=== PATIENT | male | born 1960 | race Caucasian/White ===

== ENCOUNTER 2021-01-10 06:39 | Outpatient (REF) | payer MEDICARE, SELFPAY | END 2021-01-10 06:40 | disposition home or self-care (01) | LOC: HO.LAB 06:39 | PROVIDERS: PCP Internal Medicine; Visit Provider Internal Medicine | DX: Z20.822 Contact with and (suspected) exposure to COVID-19 (principal) | CPT/HCPCS: U0003; U0005 ==

== ENCOUNTER 2021-03-25 09:42 | Outpatient (REF) | payer MEDICARE, SELFPAY | END 2021-03-25 09:43 | disposition home or self-care (01) | LOC: HO.LAB 09:42 | PROVIDERS: PCP Internal Medicine; Visit Provider Internal Medicine | DX: Z20.822 Contact with and (suspected) exposure to COVID-19 (principal) | CPT/HCPCS: C9803; U0003; U0005 ==

== ENCOUNTER 2023-06-20 08:58 | Outpatient (REF) | payer MEDICARE, SELFPAY ==
[2023-06-20 11:58] LABS: Anion Gap 15 (12-20); Blood Urea Nitrogen 13 mg/dL (9-16); Calcium 9.7 mg/dL (8.4-10.2); Carbon Dioxide 25 mmol/L (22-29); Chloride 105 mmol/L (96-108); Estimated Glomerular Filt Rate > 60; Glucose Random 109 mg/dL (60-115); Potassium 4.2 mmol/L (3.3-5.1); Sodium 141 mmol/L (135-145)
== END 2023-06-20 08:59 | disposition home or self-care (01) ==
LOC: HO.HHCL 08:58
PROVIDERS: Visit Provider Internal Medicine
DX: I10 Essential (primary) hypertension (principal)
CPT/HCPCS: 36415; 80048

== ENCOUNTER 2024-05-09 08:48 | Outpatient (REF) | payer MEDICARE, SELFPAY ==
[2024-05-09 11:40] LABS: Alanine Aminotransferase 15 U/L (0-40); Albumin Level 4.1 g/dL (3.5-5.0); Alkaline Phosphatase 55 U/L (39-117); Anion Gap 13 (12-20); Aspartate Amino Transferase 23 U/L (5-37); Bilirubin Total 0.5 mg/dL (0.0-1.0); Blood Urea Nitrogen 10 mg/dL (9-16); Calcium 9.4 mg/dL (8.4-10.2); Carbon Dioxide 26 mmol/L (22-29); Chloride 106 mmol/L (96-108); Cholesterol 167 mg/dL (<200); Estimated Glomerular Filt Rate > 60; Glucose Fasting 119 mg/dL (60-99); HDL Cholesterol 47 mg/dL (>40); LDL Cholesterol Calculated 100 mg/dL (<100); Potassium 4.2 mmol/L (3.3-5.1); Sodium 141 mmol/L (135-145); Total Protein 6.7 g/dL (6.5-8.0); Triglycerides 101 mg/dL (<150)
[2024-05-09 11:49] LABS: ~HepC Num1 0.08 S/CO (0.00-0.79); ~Hepatitis C Antibody Nonreactive (Nonreactive)
[2024-05-09 11:50] LABS: Prostate Specific Antigen 1.35 ng/mL (<0.05-4.0)
[2024-05-09 12:39] LABS: Creatinine Urine 184.31 mg/dL; Microalbum/Creatinine Ratio Ur 5.9 ug/mg cr (<30)
== END 2024-05-09 08:49 | disposition home or self-care (01) ==
LOC: HO.HHCL 08:48
PROVIDERS: Visit Provider Internal Medicine
DX: Z13.89 Encounter for screening for other disorder (principal)
CPT/HCPCS: 36415; 80053; 80061; 82043; 82570; 84153; 84443; 86803

== ENCOUNTER 2024-09-18 10:55 | Outpatient (REF) | payer MEDICARE, SELFPAY ==
[2024-09-18 11:57] LABS: MANUAL DIFF FLAG NO
[2024-09-18 12:03] LABS: Basophils Percent Auto 0.6 % (0-2); Eosinophils Percent Auto 0.4 % (0-4); Hematocrit 38.5 % (42.0-52.0); Hemoglobin 12.8 g/dl (14.0-18.0); Imm Gran Abs Auto 0.03 X10*3/uL (0.00-0.03); Imm Gran Pct Auto 0.4 % (0.0-0.4); Lymphocytes Absolute Auto 1.3 X10*3/uL (1.2-4.9); Lymphocytes Percent Auto 18.3 % (20-40); Mean Corpuscular HGB Conc 33.2 g/dl (31.0-36.0); Mean Corpuscular Hemoglobin 30.3 pg (27.0-33.0); Mean Corpuscular Volume 91.2 fL (80.0-98.0); Mean Platelet Volume 9.9 fL (9.4-12.4); Monocytes Absolute Auto 0.5 X10*3/uL (0.1-1.2); Monocytes Percent Auto 6.7 % (2-11); Neutrophils Absolute Auto 5.3 x10*3/uL (2.0-8.3); Neutrophils Percent Auto 73.6 % (45-73); Platelet Count 216 X10*3/uL (160-400); Red Blood Count 4.22 X10*6/uL (4.60-5.80); Red Cell Distribution Width 13.3 % (11.0-16.0); White Blood Count 7.1 X10*3/uL (4.8-10.8)
[2024-09-18 12:27] LABS: Alanine Aminotransferase 17 U/L (0-40); Albumin Level 4.3 g/dL (3.5-5.0); Alkaline Phosphatase 52 U/L (39-117); Anion Gap 17 (12-20); Aspartate Amino Transferase 22 U/L (5-37); Bilirubin Total 0.4 mg/dL (0.0-1.0); Blood Urea Nitrogen 12 mg/dL (9-16); Calcium 9.4 mg/dL (8.4-10.2); Carbon Dioxide 24 mmol/L (22-29); Chloride 102 mmol/L (96-108); Cholesterol 187 mg/dL (<200); Estimated Glomerular Filt Rate > 60; Glucose Random 127 mg/dL (60-115); HDL Cholesterol 53 mg/dL (>40); LDL Cholesterol Calculated 122 mg/dL (<100); Potassium 4.4 mmol/L (3.3-5.1); Sodium 139 mmol/L (135-145); Total Protein 7.2 g/dL (6.5-8.0); Triglycerides 60 mg/dL (<150)
[2024-09-18 12:41] LABS: Creatinine Urine 205.91 mg/dL; Microalbum/Creatinine Ratio Ur 4.8 ug/mg cr (<30); Prostate Specific Antigen Scr 1.62 ng/mL (<0.05-4.0)
[2024-09-18 12:47] LABS: TSH reflex Free T4 1.34 uIU/mL (0.32-4.0)
[2024-09-18 13:26] LABS: Erythrocyte Sedimentation Rate 7 MM/HR (0-15)
[2024-09-19 08:46] LABS: ~HepC Num1 0.09 S/CO (0.00-0.79); ~Hepatitis C Antibody Nonreactive (Nonreactive)
== END 2024-09-18 10:56 | disposition home or self-care (01) ==
LOC: HO.HHCL 10:55
PROVIDERS: Visit Provider Internal Medicine
DX: Z00.00 Encounter for general adult medical examination without abnormal findings (principal); I10 Essential (primary) hypertension; E11.9 Type 2 diabetes mellitus without complications; R63.4 Abnormal weight loss; Z12.5 Encounter for screening for malignant neoplasm of prostate
CPT/HCPCS: 36415; 80053; 80061; 82043; 82570; 84153; 84443; 85025; 85652; 86803

== ENCOUNTER 2024-09-18 11:35 | Outpatient (REF) | payer MEDICARE, SELFPAY ==
--- NOTE | ~2024-09-18 | XR_ITS ---
EXAMINATION: XR CHEST CLINICAL INFORMATION: WEIGHT LOSS COMPARISON: None available. TECHNIQUE: 2 views of the chest were obtained. FINDINGS: No consolidation, pleural effusion or pneumothorax. Cardiomediastinal silhouette size is normal. Calcified plaque aortic arch. Osseous structures are intact. XR/XR chest 2V IMPRESSION: No acute airspace disease. Electronically signed by: Percy Lennon MD 09/18/2024 12:43 PM EST
--- OUTSIDE RECORDS SUMMARY | 2024-09-18 14:16 | XMS_ITS | Encounter Summary ---
Author Organization [employer] Address [address] [place] [address] [address] [place] [address] Care Team Providers Care Youth Liaison Officer Name Role Phone Gregg Brown MD Primary Care Provide r Reason for Visit * Reason Onset Date Comments Chart Prep 09/04/2024 Encounter Details Date Type Department Care Team ([facility] st Contact Info) Description 09/04/2024 Telephone [facility] [address] [place] [address] Gregg Brown MD [address] [place] [address] Chart Prep Social History Tobacco Use Types Packs/Day Years Used Date Smoking Tobacco: Former Cigarettes Passive Smoke Exposure: Past Smokeless Tobacco: Never Alcohol Use Standard Drinks/Week Comments Yes 0 (1 standard drink = 0.6 oz pur e alcohol) rare Alcohol Answer Date Recorded Frequency of Alcohol Consumption Not on file 05/20/2024 Average Number of Drinks Not on file 024 Frequency of Binge Drinking Not on file 11/2023 Score 0 05/20/2024 Depression Answer Date Recorded Patient Health Questionnaire-9 Score 0 01/15/2024 Patient Health Questionnaire-9 Score 0 01/15/2024 Last PHQ-9: Questionnaire Data Not on file 0 01/15/2024 Housing Stability Answer Date Recorded What is your housing situation today? I have dave townsend 01/15/[address] you li ve. Do you have problems with any of the following? None of the above 01/15/2024 Food Insecurity Answer Date Recorded Within the past 12 months, y ou worried that your food would run out before you got money to buy more: Never True 01/15/2024 Within the past 12 months,th e food you bought just didn't last and you didn't have enough money to get more: Never True 08/2023 Transportation Answer Date Recorded In the past 12 months, has l ack of transportation kept you from medical appts, meetings, work or from getting things needed for daily living? No 01/15/2024 Utilities Answer Date Recorded In the past 12 months, has t he electric, gas, oil or water company threatened to shut off services in your home? No 01/15/2024 Depression Answer Date Recorded Patient Health Questionnaire-2 Score 0 01/15/2024 Internet Access Answer Date Recorded Internet Access Q1 Yes 03/17/2024 Internet Access Q2 Not on file 03/17/2024 Sex and Gender Information Value Date Recorded Sex Assigned at Male 05/15/2022 10:18 AM EDT Legal Sex Male 10:18 AM EDT Gender Identity Male 05/15/2022 10:18 AM EDT Sexual Orientation Straight 05/15/2022 10 :18 AM EDT documented as of this encounter Miscellaneous Notes * Telephone Encounter - Maris Dye [place] - 09/04/2024 10:30 AM EST Chart Prep Labs: not applicable Images: not applicable Vaccines due: Tdap Due, PCV20 Due, and Shingles in pharmacy Due Referrals: Optometry Pending appointment on n/a Screenings: Colonoscopy and Foot Exam Overdue care gaps: A1C, Glucose, and Oral Health Chart prep for upcoming appt with Dr.Esparza greene. LB documented in this encounter Plan of Treatment Not on file documented as of this encounter Visit Diagnoses Not on filedocumented in this encounter Additional Health Concerns Assessment Noted Time PHQ-9 Depression Total Score: 0 01/15/20 24 10:30 AM EDT documented as of this encounter Care Teams Youth Liaison Officer Relationship Specialty Start Date End Date Gregg Brown MD [address] [place] [phone] PCP - General Internal Medicine 02/17/14 documented as of this encounter
--- OUTSIDE RECORDS SUMMARY | 2024-09-18 14:16 | XMS_ITS | Encounter Summary ---
Author Organization [facility] Address [address] [place] [address] [address] [place] [address] Care Team Providers Care Verification Clerk Name Role Phone Gregg Brown MD Primary Care Provide r Reason for Referral * Imaging (Routine) - Authorized Specialty Diagnoses / Procedures Referred By Contac t Referred To Contact Radiology Diagnoses Weight loss Procedures CT Chest w/o Contrast Gregg Brown MD [address] [place] [address] Phone: tel: fax: [address] Phone: tel: fax: Referral ID Status Reason Start Date Expiration Date V isits Requested Visits Authorized [id number] Authorized 09/18/2024 09/18/2025 1 1 * Imaging (Routine) - Authorized Specialty Diagnoses / Procedures Referred By Contac t Referred To Contact Radiology Diagnoses Weight loss Procedures CT Abdomen Pelvis w/ Contrast Gregg Brown MD [address] [place] [address] Phone: tel: fax: Referral ID Status Reason Start Date Expiration Date V isits Requested Visits Authorized [id number] Authorized 09/18/2024 09/18/2025 1 1 Reason for Visit * Reason Comments Diabetes Encounter Details Date Type Department Care Team (Late st Contact Info) Description 09/18/2024 10:15 AM EST Office Visit [facility] [address] [place] [address] Gregg Brown MD [address] [place] [address] Essential hypertension (Primary Dx); Type 2 diabetes mellitus without complication, without long-term current use of insulin (CMS/HCC); Weight loss; Preventative health care Social History Tobacco Use Types Packs/Day Years Used Date Smoking Tobacco: Former Cigarettes Q uit: 09/18/2001 Passive Smoke Exposure: Past Smokeless Tobacco: Never Tobacco Cessation:Counseling Given: Not Answered Alcohol Use Standard Drinks/Week Comments Yes 0 [...] AM EDT documented as of this encounter Last Filed Vital Signs Vital Sign Reading Time Taken Comments Blood Pressure 138/76 09/18/2024 10:28 AM EST Pulse 89 09/18/2024 10:28 AM EST Temperature 36.3 ??C (97.3 ??F) 09/18/2024 10:[address] Respiratory Rate 20 09/18/2024 10:07 AM EST Oxygen Saturation 95% 09/18/2024 10:07 AM EST Inhaled Oxygen Concentration - - Weight 71.4 kg (157 lb 6.4 oz) 09/18/2024 10:07 AM EST Height 170.2 cm (5' 7 ) 09/18/2024 10:07 AM EST Body Mass Index 24.65 09/18/2024 10:07 AM EST documented in this encounter Progress Notes * Gregg Duff MD - 09/18/2024 10:15 AM EST SUBJECTIVE Thaddeus Ernst is a 64 y.o. male who presents for Diabetes. Diabetes He presents for his follow-up diabetic visit. He has type 2 diabetes mellitus. Pertinent negatives for hypoglycemia include no headaches. Pertinent negatives for diabetes include no chest pain. Review of Systems Constitutional: Negative for fever. HENT: Negative for sore throat. Respiratory: Negative for cough and shortness of breath. Cardiovascular: Negative for chest pain. Gastrointestinal: Negative for abdominal pain. Neurological: Negative for headaches. Allergies Allergen Reactions Simvastatin Other reaction(s): Myalgias OBJECTIVE Vitals: 09/18/24 1007 09/18/24 1028 BP: (!) 150/81 138/76 BP Location: Left arm Left arm Patient Position: Sitting Sitting BP Cuff Size: Adult Pulse: (!) 112 89 Resp: 20 Temp: 97.3 ??F (36.3 ??C) TempSrc: Temporal SpO2: 95% Weight: 157 lb 6.4 oz (71.4 kg) Height: 5' 7 (1.702 m) Physical Exam Vitals reviewed. Constitutional: Appearance: Normal appearance. HENT: Head: Normocephalic and atraumatic. Right Ear: External ear normal. Left Ear: External ear normal. Nose: Nose normal. Mouth/Throat: Mouth: Mucous membranes are moist. Eyes: Conjunctiva/sclera: Conjunctivae normal. Cardiovascular: Rate and Rhythm: Normal rate and regular rhythm. Pulmonary: Effort: Pulmonary effort is normal. Breath sounds: Normal breath sounds. Skin: General: Skin is warm. Neurological: Mental Status: He is alert. Mental status is at baseline. Assessment/Plan Problem List Items Addressed This Visit Type 2 diabetes mellitus (CMS/HCC) Pt is here for a f/u DM controlled He is on a regimen of: Metformin XR 500 mg 2 tab po in am and 2 tabs po q pm. OFF Glipizide given that pt was concerned about hypoglycemia. Hgb A1c 09/18/2024 : 5.2 Foot check risk of zero Eye Exam 10/19/[address] for eye exam. Will refer to our Eye care Program. Pt reports compliance with Asa 81 mg po daily. Microalbumin on 05/09/2024: 184.35 Plan: continue current regimen f/u 4 months. Relevant Orders POCT Glucose (Completed) POCT HGB A1C (Completed) Essential hypertension - Primary Patient here for a f/u Pt's BP currently controlled. He is on a regimen of: Lisinopril 40 mg po daily and Clonidine 0.1 mg 2 tabs po BID Most recent electrolytes, Bun and Creatinine done on: Lab Results Component Value Date NA 141 05/09/2024 NA 141 06/20/2023 K 4.2 05/09/2024 K 4.2 06/20/2023 CL 106 05/09/2024 CL 105 06/20/2023 BUN 10 05/09/2024 BUN 13 06/20/2023 CREATININE 0.84 05/09/2024 CREATININE 0.86 06/20/2023 were within normal limits. patient advised to adhere to a low sodium diet, encouraged about medication compliance, counseled about weight loss. Plan: continue current regimen f/u in 4 months with me Relevant Orders Comprehensive Metabolic Panel TSH with Reflex to Free T4 CBC auto differential Weight loss Pt with > 50 lb weight loss over the expand of 2 years, pt tells me he chooses to eat less. He has no pain, he has no complaints whatsoever feels perfectly fine Plan: Will iniate a diagnostic work up to rule out etiologies, such as hyperthyroidism, Ocult malignancy Plan: Obtain TSH, CT abdomen and pelvis rule out pancreatic malignancy. Chest x- ray, ESR. Pt refuses any type of Colorectal cancer screen Follow up with me after testing Relevant Orders XR Chest [address] Abdomen Pelvis w/ Contrast CT Chest w/o Contrast Sed Rate by [facility] care PSA 05/09/2024 was normal 1.35 [place]: [place] [facility] [place] given multiple tubular adenomas. HE TELLS ME THAT HE DECLINES ANY COLORECTAL CANCER SCREEN. DECLINES COLOGUARD . VERBALIZES UNDERSTANDING OF RISKS OF MISSING A DEADLY COLON CANCER documented in this encounter Miscellaneous Notes * Assessment & Plan Note - Gregg Duff MD - 09/18/2024 10:36 AM EST Associated Problem(s): Preventative health care PSA 05/09/2024 was normal 1.35 Colonoscopy: 09/27/2016 [place] [facility] [place] f/[place] given multiple tubular adenomas. HE TELLS ME THAT HE DECLINES ANY COLORECTAL CANCER SCREEN. DECLINES COLOGUARD . VERBALIZES UNDERSTANDING OF RISKS OF MISSING A DEADLY COLON CANCER * Assessment & Plan Note - Gregg Duff MD - 09/18/2024 10:30 AM EST Associated Problem(s): Weight loss Pt with > 50 lb weight loss over the expand of 2 years, pt tells me he chooses to eat less. He has no pain, he has no complaints whatsoever feels perfectly fine Plan: Will iniate a diagnostic work up to rule out etiologies, such as hyperthyroidism, Ocult malignancy Plan: Obtain TSH, CT abdomen and pelvis rule out pancreatic malignancy. Chest x- ray, ESR. Pt refuses any type of Colorectal cancer screen Follow up with me after testing * Assessment & Plan Note - Gregg Duff MD - 09/18/2024 10:23 AM EST Associated Problem(s): Essential hypertension Patient here for a f/u Pt's BP currently controlled. He is on a regimen of: Lisinopril 40 mg po daily and Clonidine 0.1 mg 2 tabs po BID Most recent electrolytes, Bun and Creatinine done on: Lab Results Component Value Date NA 141 05/09/2024 NA 141 06/20/2023 K 4.2 05/09/2024 K 4.2 06/20/2023 CL 106 05/09/2024 CL 105 06/20/2023 BUN 10 05/09/2024 BUN 13 06/20/2023 CREATININE 0.84 05/09/2024 CREATININE 0.86 06/20/2023 were within normal limits. patient advised to adhere to a low sodium diet, encouraged about medication compliance, counseled about weight loss. Plan: continue current regimen f/u in 4 months with me * Assessment & Plan Note - Gregg Duff MD - 09/18/2024 10:23 AM EST Associated Problem(s): Type 2 diabetes mellitus (CMS/HCC) Pt is here for a f/u DM controlled He is on a regimen of: Metformin XR 500 mg 2 tab po in am and 2 tabs po q pm. OFF Glipizide given that pt was concerned about hypoglycemia. Hgb A1c 09/18/2024 : 5.2 Foot check risk of zero Eye Exam 10/19/[address] for eye exam. Will refer to our Eye care Program. Pt reports compliance with Asa 81 mg po daily. Microalbumin on 05/09/2024: 184.35 Plan: continue current regimen f/u 4 months. documented in this encounter Plan of Treatment Scheduled Orders Name Type Priority Associated Diagnoses Orde r Schedule XR Chest 2 Views Imaging Routine Weight loss Ordered: 09/18/2024 CT Abdomen Pelvis w/ Contrast Imaging Routine Weight loss Expected: 09/18/2024, Expires: 09/18/2025 CT Chest w/o Contrast Imaging Routine Weight loss Ordered: 09/18/2024 Comprehensive Metabolic Panel Lab Routine Essential hypertension Ordered: 09/18/2024 documented as of this encounter Procedures Procedure Name Priority Date/Time Associated Diagnosis Comments TSH W/REFLEX TO FT4 Routine 09/18/2024 1 1:03 AM EST Essential hypertension CBC WITH AUTO DIFFERENTIAL Routine 09/18/2024 11:03 AM EST Essential hypertension SED RATE BY MODIFIED WESTERGREN Routine 09/18/2024 11:03 AM EST Weight loss POCT GLYCATED HEMOGLOBIN, TOTAL Routine 09/18/2024 10:19 AM EST Type 2 diabetes mellitus without complication, without long-term current use of insulin ([facility]) POCT GLUCOSE Routine 09/18/2024 10:17 AM EST Type 2 diabetes mellitus without complication, without long-term current use of insulin ([facility]) documented in this encounter Results * Sed Rate by Modified Westergren (09/18/2024 11:03 AM EST) Erythrocyte Sedimentation Rate 7 0 - 15 MM/HR [facility] Comment:Patients with polycy themia and many hemoglobin abnormalitiesmay have depressed sed rates whereas patients with anemiamay have elevated sed rates. Blood Venous blood specimen / Unknown 09/18/2024 11:03 AM EST 09/18/2024 11:51 AM EST us Gregg Duff MD LAB BLOOD ORDERABLES Final Result [facility] [address] [place] [phone] * (ABNORMAL) CBC auto differential (09/18/2024 11:03 AM EST) White Blood Count 7.1 4.8 - 10.8 X10*3/uL [facility] Red Blood Count 4.22(L) 4.60 - 5.80 X10*6/uL [facility] Hemoglobin 12.8(L) 14.0 - 18.0 g/dl [facility] Hematocrit 38.5(L) 42.0 - 52.0 % [facility] Mean Corpuscular Volume 91.2 80.0 - 98.0 fL [facility] Mean Corpuscular Hemoglobin 30.3 27.0 - 33.0 pg [facility] Mean Corpuscular HGB Conc 33.2 31.0 - 36.0 g/dl [facility] Red Cell Distribution Width 13.3 11.0 - 16.0 % [facility] Platelet Count 216 160 - 400 X10*3/uL [facility] Mean Platelet Volume 9.9 9.4 - 12.4 fL [facility] Neutrophils Percent Auto 73.6(H) 45 - 73 % [facility] Imm Gran Pct Auto 0.4 0.0 - 0.4 % [facility] Lymphocytes Percent Auto 18.3(L) 20 - 40 % [facility] Monocytes Percent Auto 6.7 2 - 11 % [facility] Eosinophils Percent Auto 0.4 0 - 4 % [facility] Basophils Percent Auto 0.6 0 - 2 % [facility] NRBC Pct Auto 0.0 0.0 - 0.2 /100WBC [facility] Neutrophils Absolute Auto 5.3 2.0 - 8.3 x10*3/uL [facility] Imm Gran Abs Auto 0.03 0.00 - 0.03 X10*3/uL [facility] Lymphocytes Absolute Auto 1.3 1.2 - 4.9 X10*3/uL [facility] Monocytes Absolute Auto 0.5 0.1 - 1.2 X10*3/uL [facility] Eosinophils Absolute Auto 0.0 0.0 - 0.4 X10*3/uL [facility] Basophils Absolute Auto 0.0 0.0 - 0.2 X10*3/uL [facility] NRBC Abs Auto 0.000 0.0 - 0.012 X10*3/uL [facility] Blood Venous blood specimen / Unknown 09/18/2024 11:03 AM EST 09/18/2024 11:51 AM EST Gregg Duff MD LAB BLOOD ORDERABLES Final Result Performing Organization Address City/[facility]/ZIP Co de Phone Number [facility] [address] [place] [phone] * TSH with Reflex to Free T4 (09/18/2024 11:03 AM EST) TSH reflex Free T4 1.34 0.32 - 4.0 uIU/mL [facility] Blood Venous blood specimen / Unknown 09/18/2024 11:03 AM EST 09/18/2024 11:51 AM EST Gregg Duff MD LAB BLOOD ORDERABLES Final Result Performing Organization Address City/[facility]/ZIP Co de Phone Number [facility] [address] [place] [phone] * POCT HGB A1C (09/18/2024 10:19 AM EST) Hemoglobin A1C 5.2 4.0 - 6.0 % QC Media Lot # [id number] Lot# Expiration Date Blood 09/18/2024 10:1 9 AM EST us Gregg Duff MD POINT OF CARE TEST EN TER/EDIT ORDERABLES Final Result * POCT Glucose (09/18/2024 10:17 AM EST) Glucose Blood, POC 123 60 - 200 mg/dL QC Media Lot # [id number] Lot# Expiration Date Blood Capillary blood specimen / Unknown 09/18/2024 10:17 AM EST Gregg Duff MD POINT OF CARE TEST EN TER/EDIT ORDERABLES Final Result documented in this encounter Visit Diagnoses Diagnosis Essential hypertension- Primary Unspecified essential hypertension Type 2 diabetes mellitus without complication, without long-term current use of insulin ([facility]) Weight loss Loss of weight Preventative health care Routine general medical examination at a health care facility documented in this encounter Additional Health Concerns Assessment Noted Time PHQ-9 Depression Total Score: 0 01/15/20 24 10:30 AM EDT documented as of this encounter Care Teams Verification Clerk Relationship Specialty Start Date End Date Gregg Brown MD [address] [place] [phone] PCP - General Internal Medicine 02/17/14 documented as of this encounter
--- OUTSIDE RECORDS SUMMARY | 2024-09-18 14:16 | XMS_ITS | Clinical Summary ---
Author Organization [employer] Address [address] [place] [address] [address] [place] [address] Care Team Providers Care Sales Recruitment Specialist Name Role Phone Gregg Brown MD Primary Care Provide r Allergies Active Allergy Reactions Criticality Noted Date Comments Simvastatin 04/23/2012 Other reaction(s): Myalgias Medications aspirin 81 MG EC tablet Take 81 mg by mouth in the morning. 12/28/19 22 Active FLUoxetine (PROzac) 20 MG capsule TAKE 1 CAPSULE BY MOUTH EVERY DAY IN THE MORNING 90 capsule 1 05/25/20 23 Active glucose blood (ZoodigTouch Ultra) test stripIndications :Type 2 diabetes mellitus without complication, without long-term current use of insulin (CMS/[facility]) USE TO CHECK BLOOD SUGAR TWICE A DAY 100 each 11 11/30/19 24 Active metFORMIN (Glucophage) 1000 MG tabletIndication s:Type 2 diabetes mellitus without complication, without long-term current use of insulin (CMS/[facility]) TAKE 1 TABLET BY MOUTH TWICE DAILY 180 tablet 1 06/10/20 24 Active cloNIDine (Catapres) 0.1 MG tabletIndication s:Essential hypertension TAKE 2 TABLETS BY MOUTH TWICE DAILY 360 tablet 1 06/10/20 24 Active lisinopril 40 MG tabletIndication s:Essential hypertension TAKE 1 TABLET BY MOUTH EVERY MORNING 90 tablet 1 06/10/20 24 Active hydrOXYzine pamoate (Vistaril) 25 MG capsuleIndicatio ns:Depressive disorder TAKE 1 CAPSULE BY MOUTH EVERY 8 HOURS IF NEEDED FOR ITCHING 90 capsule 1 06/10/20 24 Active risperiDONE (RisperDAL) 1 MG tablet TAKE 1 TABLET BY MOUTH AT BEDTIME, MAY REPEAT X 1 DURING THE DAY IF GOING OUT 135 tablet 2 09/09/19 25 Active risperiDONE (RisperDAL) 1 MG tablet TAKE 1 TABLET BY MOUTH AT BEDTIME, MAY REPEAT X 1 DURING THE DAY IF GOING OUT 135 tablet 2 11/28/19 24 025 Discontinued(Re order (will not trigger notification to Pharmacy)) Active Problems Problem Noted Date Diagnosed Date Weight loss 09/18/2024 Assessment & Plan (09/18/2024 10:32 AM EST): Pt with > 50 lb weight loss [...] screen Follow up with me after testing Preventative health care 06/20/2022 Assessment & Plan (09/18/2024 10:36 AM EST): PSA 05/09/2024 was normal 1.35 Colonoscopy: 09/27/2016 [place] [facility] yr f/u given multiple tubular adenomas. HE TELLS ME THAT HE DECLINES ANY COLORECTAL CANCER SCREEN. DECLINES COLOGUARD . VERBALIZES UNDERSTANDING OF RISKS OF MISSING A DEADLY COLON CANCER Assessment & Plan (05/20/2024 9:47 AM EST): PSA 05/09/2024 was normal 1.35 Colonoscopy: 09/27/2016 at [facility] 3 yr f/u given multiple tubular adenomas. HE TELLS ME THAT HE DECLINES ANY COLORECTAL CANCER SCREEN. DECLINES COLOGUARD . VERBALIZES UNDERSTANDING OF RISKS OF MISSING A DEADLY COLON CANCER Assessment & Plan (01/15/2024 10:32 AM EDT): PSA 04/23/2018 was normal 1.16, will repeat Colonoscopy: 09/27/2016 at [facility] 3 yr f/u given multiple tubular adenomas. HE TELLS ME THAT HE DECLINES ANY COLORECTAL CANCER SCREEN. DECLINES COLOGUARD . VERBALIZES UNDERSTANDING OF RISKS OF MISSING A DEADLY COLON CANCER Assessment & Plan (12/05/2022 11:44 AM EDT): PSA 04/23/2018 was normal 1.16 Colonoscopy: 09/27/2016 at [facility] 3 yr f/u given multiple tubular adenomas. HE TELLS ME THAT HE DECLINES ANY COLORECTAL CANCER SCREEN. DECLINES COLOGUARD . VERBALIZES UNDERSTANDING OF RISKS OF MISSING A DEADLY COLON CANCER Assessment & Plan (06/20/2022 3:54 PM EST): MAXIMINO: declines PSA 04/23/2018 was normal 1.16 Colonoscopy: 09/27/2016 at [facility] 3 yr f/u given multiple tubular adenomas. HE TELLS ME THAT HE DECLINES ANY COLORECTAL CANCER SCREEN. Td: 04/23/2012 Essential hypertension 11/15/2017 Assessment & Plan (09/18/2024 10:23 AM EST): Patient here for a f/u Pt's BP [...] regimen f/u in 4 months with me Assessment & Plan (05/20/2024 9:46 AM EST): Patient here for a f/u Pt's BP [...] regimen f/u in 4 months with me Assessment & Plan (01/15/2024 10:34 AM EDT): Patient here for a f/u Pt's BP currently controlled. He is on a regimen of: Lisinopril 40 mg po daily and Clonidine 0.1 mg 2 tabs po BID Most recent electrolytes, Bun and Creatinine done on: 06/20/2023 were within normal limits. Today will repeat patient advised to adhere to a low sodium diet, encouraged about medication compliance, counseled about weight loss. Plan: continue current regimen f/u in 4 months with me Assessment & Plan (04/10/2023 11:36 AM EDT): Pt here for a f/u Pt's BP currently uncontrolled, mainly because he did not take his medications today He is on a regimen of: Lisinopril 40 mg po daily and Clonidine 0.1 mg 2 tabs po BID Most recent electrolytes, Bun and Creatinine done on: 11/22/2020 were within normal limits. Today will repeat patient advised to adhere to a low sodium diet, encouraged about medication compliance, counseled about weight loss. Plan: continue current regimen f/u in 2 weeks with RN and 4 months with me Assessment & Plan (12/05/2022 11:30 AM EDT): Pt here for a f/u Pt's BP currently controlled He is on a regimen of: Lisinopril 40 mg po daily and Clonidine 0.1 mg 2 tabs po BID Most recent electrolytes, Bun and Creatinine done on: 11/22/2020 were within normal limits. Today will repeat patient advised to adhere to a low sodium diet, encouraged about medication compliance, counseled about weight loss. Plan: continue current regimen f/u in 4 months Assessment & Plan (06/20/2022 3:33 PM EST): Pt here for a f/u He has a BP monitor at home Pt's BP currently controlled per his report He is on a regimen of: Lisinopril 40 mg po daily and Clonidine 0.1 mg 2 tabs po BID Most recent electrolytes, Bun and Creatinine done on: 11/22/2020 were within normal limits. Today will repeat patient advised to adhere to a low sodium diet, encouraged about medication compliance, counseled about weight loss. Plan: continue current regimen f/u in 4 months Tubular adenoma of colon 10/17/2016 Assessment & Plan (01/15/2024 10:36 AM EDT): Pt with Hx multiple tubular adenomas, last colonoscopy 2016. [employer] recommended a 3 yr repeat back then.Pt cancelled the appointment we had scheduled. Today again he tells me in clear terms that he met with his and HE HAS DECIDED NOT TO HAVE ANOTHER COLORECTAL CANCER SCREENING, I HAVE DISCUSSED WITH HIM THAT BY DOING THIS HE IS PUTTING HIMSELF AT RISK OF DEADLY CONDITIONS SUCH COLON CANCER AND THAT HE CAN A RESULT. PT VERBALIZES UNDERSTANDING AND IS APPRECIATIVE OF MY CONCERNS BY HE STATES THAT IT IS HIS DECISION NOT TO HAVE ANY COLORECTAL CANCER SCREENINGS. IF HE CHANGES HIS MIND HE WILL LET ME KNOW Assessment & Plan (06/20/2022 3:52 PM EST): Benign neoplasm of colon, unspecified (D12.6). Pt with multiple tubular adenomas, last colonoscopy 2016. [employer] recommended a 3 yr repeat back then.Pt apparently cancelled the appointment we had scheduled.Today he tells me in clear terms that he met with his and his son and HE HAS DECIDED NOT TO HAVE ANOTHER COLORECTAL CANCER SCREENING, I HAVE DISCUSSED WITH HIM THAT BY DOING THIS HE IS PUTTING HIMSELF AT RISK OF DEADLY CONDITIONS SUCH COLON CANCER AND THAT HE CAN A RESULT. PT VERBALIZES UNDERSTANDING AND IS APPRECIATIVE OF MY CONCERNS BY HE STATES THAT IT IS HIS DECISION NOT TO HAVE ANY COLORECTAL CANCER SCREENINGS. IF HE CHANGES HIS MIND HE WILL LET ME KNOW Type 2 diabetes mellitus 04/22/2015 Assessment & Plan (09/18/2024 10:23 AM EST): Pt is here for a f/u DM [...] Plan: continue current regimen f/u 4 months. Assessment & Plan (05/20/2024 9:45 AM EST): Pt is here for a f/u DM controlled He is on a regimen of: Metformin XR 500 mg 2 tab po in am and 2 tabs po q pm. OFF Glipizide given that pt was concerned about hypoglycemia. Hgb A1c 05/20/2024: Foot check risk of zero Eye Exam 10/19/[address] for eye exam. Will refer to our Eye care Program. Pt reports compliance with Asa 81 mg po daily. Microalbumin on 05/09/2024: 184.35 Plan: continue current regimen f/u 4 months. Assessment & Plan (01/15/2024 10:42 AM EDT): Pt is here for a f/u DM controlled Average of BG has been around 121 he is on a regimen of: Metformin XR 500 mg 2 tab po in am and 2 tabs po q pm. OFF Glipizide given that pt was concerned about hypoglycemia. Hgb A1c 01/15/2024: 5.3 Foot check risk of zero Eye Exam 10/19/[address] for eye exam. Pt reports compliance with Asa 81 mg po daily. Microalbumin on 12/30/2019 was 10. Plan: continue current regimen f/u 4 months. Assessment & Plan (12/05/2022 11:39 AM EDT): Pt is here for a f/u DM controlled Average of BG has been around 111 he is on a regimen of: Metformin XR 500 mg 2 tab po in am and 2 tabs po q pm. OFF Glipizide given that pt was concerned about hypoglycemia. Hgb A1c 12/05/2022: 6.1 Foot check risk of zero Eye Exam 10/19/[address] for eye exam. Pt reports compliance with Asa 81 mg po daily. Microalbumin on 12/30/2019 was 10. Plan: continue current regimen f/u 4 months Assessment & Plan (06/20/2022 3:41 PM EST): Pt is here for a f/u DM controlled Average of BG has been around 108 he is on a regimen of: Metformin XR 500 mg 2 tab po in am and 2 tabs po q pm. OFF Glipizide given that pt was concerned about hypoglycemia. Hgb A1c 06/20/2022 was 6.2 Foot check risk of zero Eye Exam 10/19/[address] for eye exam. Pt reports compliance with Asa 81 mg po daily. Microalbumin on 12/30/2019 was 10. Plan: continue current regimen f/u 4 months Mixed hyperlipidemia 01/29/2012 Assessment & Plan (05/20/2024 9:47 AM EST): Patient here for a f/u On a regimen of Fish Oil In the past did not tolerate simvastatin, also c/o arthralgia when taking lovastatin. Lipid profile checked on Lab Results Component Value Date TRIG 101 05/09/2024 TRIG 99 10/27/2022 CHOL 167 05/09/2024 LDLCHOLCAL 100 (H) 05/09/2024 HDL 47 05/09/2024 Pt does not want to try a different statin due to concerns of side effects. Plan: Continue Fish oil 1000 mg po TID. Pt encouraged to adhere to a low cholesterol diet, and try to loose weight through diet and exercise Assessment & Plan (01/15/2024 10:35 AM EDT): Patient here for a f/u On a regimen of Fish Oil In the past did not tolerate simvastatin, also c/o arthralgia when taking lovastatin. Lipid profile checked on 10/27/2022 showed a total cholesterol of 186, triglycerides of 99 , HDL 48 and LDL of 117 pt does not want to try a different statin due to concerns of side effects. Plan: Continue Fish oil 1000 mg po TID. Repeat Lipid profile Pt encouraged to adhere to a low cholesterol diet, and try to loose weight through diet and exercise Assessment & Plan (12/05/2022 11:32 AM EDT): Pt here for a f/u On a regimen of Fish Oil in the past did not tolerate simvastatin, also c/o arthralgia when taking lovastatin. Lipid profile checked on 10/27/2022 showed a total cholesterol of 186, triglycerides of 99 , HDL 48 and LDL of 117 pt does not want to try a different statin due to concerns of side effects. plan: Continue Fish oil 1000 mg po TID. Pt encouraged to adhere to a low cholesterol diet, and try to loose weight through diet and exercise Assessment & Plan (06/20/2022 3:33 PM EST): Pt here for a f/u On a regimen of Fish Oil in the past did not tolerate simvastatin, also c/o arthralgias when taking lovastatin. Lipid profile checked on 05/13/2020 showed a total cholesterol of 159, triglycerides of 101 , HDL 42 and LDL of 98 pt does not want to try a different statin due to concerns of side effects. plan: Continue Fish oil 1000 mg po TID. Repeat Lipid profile Pt encouraged to adhere to a low cholesterol diet, and try to loose weight through diet and exercise Chronic low back pain 1960 Assessment & Plan (06/20/2022 3:53 PM EST): Pt with Hx of low back pain with radiation to his right lower extremity accompanied by numbness and tingling on his right leg and sensation that his leg is heavy Pt's most recent MRI of his LS spine done on 05/12/2013 showed a moderate size disc bulges at L4-L5 and L5-S1 causing moderate to severe L4-L5 central canal stenosis and mild to moderate L5-S1 canal stenosis. There was a tiny superimposed disc extrusion at L5-S1 with some compression noted at Bilat S1 nerve roots. Pt was last seen at [facility] 05/21/2013. They told him they could repeat the injection if need be. Depressive disorder 1960 Assessment & Plan (05/20/2024 9:48 AM EST): Feeling anxious In the past used to follow with a psychiatrist but no longer due to his type of medical insurance. Patient denies any suicidal ideation or thoughts, Patient has crisis numbers and knows to use them if needed Patient tells me he stopped taking the Fluoxetine He is only on Risperdal and Clonidine He has been reading the Bible and that has helped him For now he declines psychotherapy Last visit we added hydroxyzine 25 mg po q 8 hrs Assessment & Plan (01/15/2024 10:44 AM EDT): Feeling anxious In the past used to follow with a psychiatrist but no longer due to his type of medical insurance. Patient denies any suicidal ideation or thoughts, Patient has crisis numbers and knows to use them if needed Patient tells me he stopped taking the Fluoxetine He is only on Risperdal and Clonidine He has been reading the Bible and that has helped him For now he declines psychotherapy Plan: add hydroxyzine 25 mg po q 8 hrs Assessment & Plan (12/05/2022 11:39 AM EDT): Feeling good In the past used to follow with a psychiatrist but no longer due to his type of medical insurance. Patient denies any suicidal ideation or thoughts, Patient has crisis numbers and knows to use them if needed Patient tells me he stopped taking the Fluoxetine He is only on Risperdal and Clonidine He has been reading the Bible and that has helped him For now he declines psychotherapy Assessment & Plan (06/20/2022 3:52 PM EST): Feeling good In the past used to follow with a psychiatrist but no longer due to his type of medical insurance. Patient denies any suicidal ideation or thoughts, Patient has crisis numbers and knows to use them if needed Plan: Continue Fluoxetine 20 mg po daily Encounters Date Type Department Care Team Description 09/18/2024 10:15 AM EST Office Visit [facility] [address] [place] [phone] Gregg Brown MD Essential hypertension (Primary Dx); Type 2 diabetes mellitus without complication, without long-term current use of insulin ([facility]); Weight loss; Preventative health care 09/18/2024 Orders Only [facility] [address] [place] [phone] Gregg Brown MD 09/18/2024 Travel 09/09/2024 Patient Outreach [facility] [address] [place] [address] Gregg Brown MD Pre-visit Planning (SDOH Screening negative and Tobacco screening negative) 09/08/2024 Refill [facility] [address] [place] [address] Gregg Brown MD 09/04/2024 Telephone [facility] [address] [place] [address] Gregg Brown MD Chart Prep from Last 3 Months Immunizations Name Administration Dates Next Due Influenza injectable quadriv alent IIV4 with preservative 04/23/2018,04/22/2015 Influenza injectable quadriv alent preservative free 04/10/2023,06/20/2022,06/08/2021,2018 Influenza, High Dose Seasona l, Preservative Free 05/20/2024 Influenza, IIV3, injectable 05/12/2014, 1 Influenza, Split (incl. haroldo fied surface antigen) 04/03/2013,04/23/2012 Moderna Covid-19 Vaccine 12+ 12/27/2021, 06/08/2021,10/05/2020,2020 Pfizer Covid-19 Vaccine 12+ 05/20/2024 TD (adult), 2 Lf tetanus tox oid, preservative free, adsorbed 04/23/2012 Td (adult), unspecified 08/18/2004 Social History Tobacco Use Types Packs/Day Years [...] Orientation Straight 05/15/2022 10 :18 AM EDT Last Filed Vital Signs Vital Sign Reading [...] Mass Index 24.65 09/18/2024 10:07 AM EST Plan of Treatment Health Maintenance Due Date Last Done Comments CT Colonography 1959 FIT DNA/Cologuard 1959 FIT 1959 FOBT 1960 Sigmoidoscopy 1959 Diabetes: Foot Exam 1969 Eye Exam 1969 Pneumococcal Vaccine: 50+ Years (1 of 2 - PCV) 1978 Zoster Vaccines (1 of 2) 2009 DTaP/Tdap/Td Vaccines (1 - Tdap) 04/24/2012 04/23/2012, 08/18/2004 Colonoscopy 09/28/2019 09/27/2016 Colorectal Cancer Screening 09/28/2019 Depression Screening 01/14/2025 01/15/2024, 01/15/20 24 Diabetes: Hemoglobin A1C 03/21/2025 025, 05/20/2024, 01/15/2024, Additional history exists Alcohol/Substance Use Screening 05/20/2025 05/20/2024 SDOH Screening 09/09/2025 09/09/2024 Diabetes: Urine Protein Screening 09/18/2025 09/18/2024, 05/09/2024, 10/27/2022, Additional history exists Lipid Panel 09/18/2025 09/18/2024, 04/16, 10/27/2022, Additional history exists Tobacco Screening 09/18/2025 09/18/2024 RSV Patients and Patients Aged 60 years or older (1 - 1-dose 75+ series) 2034 Hepatitis C Screening Completed 05/09/2024 COVID-19 Vaccine Completed 05/20/2024, , 06/08/2021, Additional history exists Influenza Vaccine Completed 05/20/2024, , 06/20/2022, Additional history exists HIB Vaccines Aged Out No longer eligi ble based on patient's age to complete this topic HPV Vaccines Aged Out No longer eligi ble based on patient's age to complete this topic Hepatitis A Vaccines Aged Out No long er eligible based on patient's age to complete this topic Hepatitis B Vaccines Aged Out No long er eligible based on patient's age to complete this topic IPV Vaccines Aged Out No longer eligi ble based on patient's age to complete this topic Meningococcal Vaccine Aged Out No sandrine jonas eligible based on patient's age to complete this topic RSV under 20 months Aged Out No longe r eligible based on patient's age to complete this topic Rotavirus Vaccines Aged Out No longer eligible based on patient's age to complete this topic Procedures Procedure Name Priority Date/Time Associated Diagnosis Comments ALBUMIN, RANDOM URINE W/CREATININE Routine 09/18/2024 11:03 AM EST LIPID PANEL, STANDARD Routine 09/18/2024 11:03 AM EST SED RATE BY MODIFIED WESTERGREN Routine 09/18/2024 11:03 AM EST Weight loss CBC WITH AUTO DIFFERENTIAL Routine 09/18/2024 11:03 AM EST Essential hypertension TSH W/REFLEX TO FT4 Routine 09/18/2024 1 1:03 AM EST Essential hypertension PSA, SCREEN Routine 09/18/2024 11:03 AM EST Preventative health care COMPREHENSIVE METABOLIC PANEL Routine 09/18/2024 11:03 AM EST Type 2 diabetes mellitus without complication, without long-term current use of insulin (CMS/HCC) Essential hypertension POCT GLYCATED HEMOGLOBIN, TOTAL Routine 09/18/2024 10:19 AM EST Type 2 diabetes mellitus without complication, without long-term current use of insulin (CMS/HCC) POCT GLUCOSE Routine 09/18/2024 10:17 AM EST Type 2 diabetes mellitus without complication, without long-term current use of insulin (CMS/HCC) HEPATITIS C AB W/REFL TO HCV RNA, QN, PCR Routine 05/09/2024 8:54 AM EDT Preventative health care HM COLONOSCOPY Routine 09/27/2016 from Last 3 Months or Most Recently Relevant to Health Maintenance Results * PSA, Screen (09/18/2024 11:03 AM EST) PSA, Total 1.62 <0.05 - 4.0 ng/mL [facility] Comment:PSA methodology: Alida Morton i ChemiluminescentMicroparticle Immunoassay (CMIA) Blood Venous blood specimen / Unknown 09/18/2024 11:03 AM EST 09/18/2024 11:51 AM EST Gregg Duff MD LAB BLOOD ORDERABLES Final Result Performing Organization Address City/[facility]/ZIP Co de Phone Number [facility] [address] [place] [phone] * TSH with Reflex to Free T4 (09/18/2024 11:03 AM EST) Pathologist [facility] TSH reflex Free T4 1.34 0.32 - 4.0 uIU/mL [facility] Blood Venous blood specimen / Unknown 09/18/2024 11:03 AM EST 09/18/2024 11:51 AM EST Gregg Duff MD LAB BLOOD ORDERABLES Final Result Performing Organization Address City/[facility] Co de Phone Number [facility] [address] [place] [phone] * Albumin, Random Urine W/Creatinine (09/18/2024 11:03 AM EST) Pathologist [facility] Creatinine, Urine 205.91 mg/dL [facility] Microalbumin Urine 10.0 mg/L [facility] Microalbum Creatinine Ratio Ur 4.8 <30 ug/mg cr [facility] Comment:Albumin/Creatinine R atio Reference Ranges: Normal: < 30 ug/mg creatinine Microalbuminuria: 30 - 300 ug/mg creatinineClinical Albuminuria: > 300 ug/mg creatinine 09/18/2024 11:0 3 AM EST 09/18/2024 11:48 AM EST us Gregg Duff MD LAB URINE ORDERABLES Final Result [facility] [address] [place] [address] [phone] * (ABNORMAL) CBC auto differential (09/18/2024 11:03 AM EST) White Blood Count 7.1 4.8 - 10.8 X10*3/uL [facility] Red Blood Count 4.22(L) 4.60 - 5.80 X10*6/uL [facility] Hemoglobin 12.8(L) 14.0 - 18.0 g/dl [facility] Hematocrit 38.5(L) 42.0 - 52.0 % [facility] Mean Corpuscular Volume 91.2 80.0 - 98.0 fL [facility] Mean Corpuscular Hemoglobin 30.3 27.0 - 33.0 pg [facility] Mean Corpuscular HGB Conc 33.2 31.0 - 36.0 g/dl [facility] Red Cell Distribution Width 13.3 11.0 - 16.0 % [facility] Platelet Count 216 160 - 400 X10*3/uL [facility] Mean Platelet Volume 9.9 9.4 - 12.4 fL [facility] Neutrophils Percent Auto 73.6(H) 45 - 73 % [facility] Imm Gran Pct Auto 0.4 0.0 - 0.4 % [facility] Lymphocytes Percent Auto 18.3(L) 20 - 40 % [facility] Monocytes Percent Auto 6.7 2 - 11 % [facility] Eosinophils Percent Auto 0.4 0 - 4 % [facility] Basophils Percent Auto 0.6 0 - 2 % [facility] NRBC Pct Auto 0.0 0.0 - 0.2 /100WBC [facility] Neutrophils Absolute Auto 5.3 2.0 - 8.3 x10*3/uL [facility] Imm Gran Abs Auto 0.03 0.00 - 0.03 X10*3/uL [facility] Lymphocytes Absolute Auto 1.3 1.2 - 4.9 X10*3/uL [facility] Monocytes Absolute Auto 0.5 0.1 - 1.2 X10*3/uL [facility] Eosinophils Absolute Auto 0.0 0.0 - 0.4 X10*3/uL [facility] Basophils Absolute Auto 0.0 0.0 - 0.2 X10*3/uL [facility] NRBC Abs Auto 0.000 0.0 - 0.012 X10*3/uL [facility] Blood Venous blood specimen / Unknown 09/18/2024 11:03 AM EST 09/18/2024 11:51 AM EST Gregg Duff MD LAB BLOOD ORDERABLES Final Result Performing Organization Address City/[facility]/ZIP Co de Phone Number [facility] [address] [place] [phone] * Sed Rate by Modified Westergren (09/18/2024 11:03 AM EST) Erythrocyte Sedimentation Rate 7 0 - 15 MM/HR [facility] Comment:Patients with polycy themia and many hemoglobin abnormalitiesmay have depressed sed rates whereas patients with anemiamay have elevated sed rates. Blood Venous blood specimen / Unknown 09/18/2024 11:03 AM EST 09/18/2024 11:51 AM EST Gregg Duff MD LAB BLOOD ORDERABLES Final Result Performing Organization Address City/[facility]/ZIP Co de Phone Number [facility] [address] [place] [phone] * (ABNORMAL) Lipid Panel, Standard (09/18/2024 11:03 AM EST) Triglycerides 60 <150 mg/dL [facility] Comment:Desirable Triglyceri de: less than 150 mg/dLBorderline High Triglyceride 150-199 mg/dLHigh Triglyceride: 200-499 mg/dLVery High Triglyceride: greater than or equal to 5OO mg/dL Cholesterol 187 <200 mg/dL [facility] Comment:Desirable Cholestero l: less than 200 mg/dLBorderline High Cholesterol: 200-239 mg/dLHigh Cholesterol: greater than 239 mg/dL LDL Cholesterol Calculated 122(H) <100 mg/dL [facility] Comment:Desirable LDL: less than 100 mg/dLNear Optimal/Above Optimal LDL: 110- 129 mg/dLBorderline High LDL: 130-159 mg/dLHigh LDL: 160-189 mg/dLVery High LDL: greater than or equal to 190 mg/dL HDL Cholesterol 53 >40 mg/dL [facility] Comment:Desirable HDL: great er than 40 mg/dL Note: This HDL assay may give artificially low results in patients with liver disease. 09/18/2024 11:0 3 AM EST 09/18/2024 11:51 AM EST us Gregg Duff MD LAB BLOOD ORDERABLES Final Result [facility] [address] [place] [address] [phone] * (ABNORMAL) Comprehensive Metabolic Panel (09/18/2024 11:03 AM EST) Sodium 139 135 - 145 mmol/L [facility] Potassium 4.4 3.3 - 5.1 mmol/L [facility] Chloride 102 96 - 108 mmol/L [facility] Carbon Dioxide 24 22 - 29 mmol/L [facility] Anion Gap 17 12 - 20 [facility] Urea Nitrogen (BUN) 12 9 - 16 mg/dL [facility] Creatinine, Serum 0.85 0.5 - 1.4 mg/dL [facility] Estimated Glomerular Filt Rate >60 [facility] Comment:Chronic Kidney Disea se: Estimated GFR < 60 mL/min/1.00b1Mvmnne Kidney Disease: Estimated GFR < 15 mL/min/1.73m2 Glucose 127(H) 60 - 115 mg/dL [facility] Calcium 9.4 8.4 - 10.2 mg/dL [facility] Bilirubin, Total 0.4 0.0 - 1.0 mg/dL [facility] Aspartate Amino Transferase 22 5 - 37 U/L [facility] Alanine Aminotransferase 17 0 - 40 U/L [facility] Total Protein 7.2 6.5 - 8.0 g/dL [facility] Albumin Level 4.3 3.5 - 5.0 g/dL [facility] Alkaline Phosphatase 52 39 - 117 U/L [facility] Blood Venous blood specimen / Unknown 09/18/2024 11:03 AM EST 09/18/2024 11:51 AM EST us Gregg Duff MD LAB BLOOD ORDERABLES Final Result [facility] [address] [place] [phone] * POCT HGB A1C (09/18/2024 10:19 [...] specimen / Unknown 09/18/2024 10:17 AM EST us Gregg Duff MD POINT OF CARE TEST EN TER/EDIT ORDERABLES Final Result * Hepatitis C Antibody with Reflex to HCV, RNA, Quantitative, Real-Time PCR (05/09/2024 8:54 AM EDT) Hepatitis C Antibody Nonreactive Nonreactive [facility] Comment:Antibodies to HCV no t detected; does not exclude early acuteHCV infection. Blood Venous blood specimen / Unknown 05/09/2024 8:54 AM EDT 05/09/2024 11:11 AM EDT us Gregg Duff MD LAB BLOOD ORDERABLES Final Result [facility] [address] [place] [address] [phone] * Colonoscopy (09/27/2016) Colonoscopy Tubular Adenomas us Historical Provider HEALTH MAINTENANCE Edited Result - Final from Last 3 Months or Most Recently Relevant to Health Maintenance Insurance [facility] [place] [phone] Care Teams Sales Recruitment Specialist Relationship Specialty Start Date End Date Gregg Brown MD [address] [place] [phone] PCP - General Internal Medicine 02/17/14
--- OUTSIDE RECORDS SUMMARY | 2024-09-18 14:16 | XMS_ITS | Encounter Summary ---
Author Organization [employer] Address [address] [facility] 7t [place] [address] Care Team Providers Care Heavy Equipment Operator Apprentice Name Role Phone Gregg Brown MD Primary Care Provide r Reason for Visit * Reason Comments Med Refill Encounter Details Date Type Department Care Team ([facility] st Contact Info) Description 11/28/2023 Refill [facility]S [address] [place] [address] Afshan Garnett MD [address] [place] [address] Social History Tobacco Use Types Packs/Day Years Used Date Smoking Tobacco: Former Cigarettes Smokeless Tobacco: Never Alcohol Use Standard Drinks/Week Comments Yes 0 (1 standard drink = 0.6 oz pur e alcohol) rare Depression Answer Date Recorded Patient Health Questionnaire-9 Score 0 12/05/2022 Housing Stability Answer Date Recorded What is your housing situation today? I have dave townsend 05/01/[address] you li ve. Do you have problems with any of the following? None of the above 05/01/2023 Food Insecurity Answer Date Recorded Within the past 12 months, y ou worried that your food would run out before you got money to buy more: Never True 05/01/2023 Within the past 12 months,th e food you bought just didn't last and you didn't have enough money to get more: Never True Transportation Answer Date Recorded In the past 12 months, has l ack of transportation kept you from medical appts, meetings, work or from getting things needed for daily living? No 05/01/2023 Utilities Answer Date Recorded In the past 12 months, has t he electric, gas, oil or water company threatened to shut off services in your home? No 05/01/2023 Depression Answer Date Recorded Patient Health Questionnaire-2 Score 0 12/05/2022 Sex and Gender Information Value Date Recorded Sex Assigned at Male 05/15/2022 10:18 AM EDT Legal Sex Male 10:18 AM EDT Gender Identity Male 05/15/2022 10:18 AM EDT Sexual Orientation Straight 05/15/2022 10 :18 AM EDT documented as of this encounter Miscellaneous Notes * Telephone Encounter - Isabelle Mayes MD - 11/29/2023 3:08 PM EDT Patient not taking daily -has still med at home * Telephone Encounter - Alice Liz RN - 11/29/2023 11:13 AM EDT Telephone call placed to pt who reports it was an automatic request from [facility]. He states he does take fluoxetine but not as Rxd. Takes sometimes . Reports still has half a bottle left, will letus know when he needs a refill. Informed this medication works best when taken daily. Pt verbalizedunderstanding and denied having any further questions or concerns at this time. Please can you confirm w pt that is taking med from 2 previous apt w PCP I see documented that pt stopped taking med , let me know is still taking to refill - thanks documented in this encounter Plan of Treatment Not on file documented as of this encounter Visit Diagnoses Not on filedocumented in this encounter Additional Health Concerns Assessment Noted Time PHQ-9 Depression Total Score: 0 12/06/19 23 11:30 AM EDT documented as of this encounter Care Teams Heavy Equipment Operator Apprentice Relationship Specialty Start Date End Date Gregg Brown MD [address] [place] [phone] PCP - General Internal Medicine 02/17/14 documented as of this encounter
--- OUTSIDE RECORDS SUMMARY | 2024-09-18 14:16 | XMS_ITS | Encounter Summary ---
Author Organization [employer] [facility] Address [address] [place] [address] 7t [place] [address] Care Team Providers Care Pick Up Attendant Name Role Phone Gregg Brown MD Primary Care Provide r Encounter Details Date Type Department Care Team ([facility] st Contact Info) Description 06/01/2022 Abstract [facility] MEDICINE [address] [place] [address] Gregg Brown MD [address] [place] [address] Social History Tobacco Use Types Packs/Day Years Used Date Smoking Tobacco: Never Assessed Sex and Gender Information Value Date Recorded Sex Assigned at Male 05/15/2022 10:18 AM EDT Legal Sex Male 10:18 AM EDT Gender Identity Male 05/15/2022 10:18 AM EDT Sexual Orientation Straight 05/15/2022 10 :18 AM EDT documented as of this encounter Plan of Treatment Not on file documented as of this encounter Procedures Procedure Name Priority Date/Time Associated Diagnosis Comments HEMOGLOBIN A1C Routine 12/27/2021 COLONOSCOPY Routine 09/27/2016 documented in this encounter Results * (ABNORMAL) Hemoglobin A1c (12/27/2021) Hemoglobin A1C 6.1(A) 4.0 - 6.0 % Blood Venous blood specimen / Unknown Historical Provider LAB BLOOD ORDERABLES Niurka l Result * Colonoscopy (09/27/2016) Colonoscopy Tubular Adenomas us Historical Provider [facility] Edited Result - Final documented in this encounter Visit Diagnoses Not on filedocumented in this encounter Care Teams Pick Up Attendant Relationship Specialty Start Date End Date Gregg Brown MD [address] [place] [phone] PCP - General Internal Medicine 02/17/14 documented as of this encounter
--- OUTSIDE RECORDS SUMMARY | 2024-09-18 14:16 | XMS_ITS | Encounter Summary ---
Author Organization [employer] Address [address] [facility] 7t [place] [address] Care Team Providers Care Floor Winder Name Role Phone Gregg Brown MD Primary Care Provide r Encounter Details Date Type Department Care Team (Latest Contact Info) Description 09/18/2024 Travel Social History Tobacco Use Types Packs/Day Years [...] documented as of this encounter Care Teams Floor Winder Relationship Specialty Start Date End Date Gregg Brown MD [address] [place] [phone] PCP - General Internal Medicine 02/17/14 documented as of this encounter
--- OUTSIDE RECORDS SUMMARY | 2024-09-18 14:16 | XMS_ITS | Encounter Summary ---
Author Organization [employer] Address [address] [facility] 7t [place] [address] Care Team Providers Care Tie Inspector Name Role Phone Gregg Brown MD Primary Care Provide r Encounter Details Date Type Department Care Team ([facility] st Contact Info) Description 05/25/2023 Orders Only [facility] MED & PEDS [address] [place] [address] China Nair LPN Social History Tobacco Use Types Packs/Day Years [...] Procedure Name Priority Date/Time Associated Diagnosis Comments COMPREHENSIVE METABOLIC PANEL, FASTING Routine 05/09/2024 8:54 AM EDT PSA, TOTAL Routine 05/09/2024 8:54 AM EDT documented in this encounter Results * PSA,Total (05/09/2024 8:54 AM EDT) Pathologist [facility] Prostate Specific Antigen 1.35 <0.05 - 4.0 ng/mL [facility] Comment:PSA methodology: Alida Morton i ChemiluminescentMicroparticle Immunoassay (CMIA) 05/09/2024 8:54 AM EDT 05/09/2024 11:11 AM EDT us Gregg Duff MD LAB BLOOD ORDERABLES Final Result [facility] [address] [place] [phone] * (ABNORMAL) Comprehensive Metabolic Panel, Fasting (05/09/2024 8:54 AM EDT) Sodium 141 135 - 145 mmol/L [facility] Potassium 4.2 3.3 - 5.1 mmol/L [facility] Chloride 106 96 - 108 mmol/L [facility] Carbon Dioxide 26 22 - 29 mmol/L [facility] Anion Gap 13 12 - 20 [facility] Urea Nitrogen (BUN) 10 9 - 16 mg/dL [facility] Creatinine, Serum 0.84 0.5 - 1.4 mg/dL [facility] Estimated Glomerular Filt Rate >60 [facility] Comment:NOTE: For -Am erican individuals, multiply the result by 1.210.Chronic Kidney Disease: Estimated GFR < 60 mL/min/1.03t7Dzomss Kidney Disease: Estimated GFR < 15 mL/min/1.73m2 Glucose Fasting 119(H) 60 - 99 mg/dL [facility] Comment:A fasting glucose fr om 100-125 mg/dl is considered impaired(pre-diabetes). Calcium 9.4 8.4 - 10.2 mg/dL [facility] Bilirubin, Total 0.5 0.0 - 1.0 mg/dL [facility] Aspartate Amino Transferase 23 5 - 37 U/L [facility] Alanine Aminotransferase 15 0 - 40 U/L [facility] Total Protein 6.7 6.5 - 8.0 g/dL [facility] Albumin Level 4.1 3.5 - 5.0 g/dL [facility] Alkaline Phosphatase 55 39 - 117 U/L [facility] 05/09/2024 8:54 AM EDT 05/09/2024 11:11 AM EDT us Gregg Duff MD LAB BLOOD ORDERABLES Final Result [facility] [address] [place] [phone] documented in this encounter Visit Diagnoses Not on filedocumented in this encounter Additional Health Concerns Assessment Noted Time PHQ-9 Depression Total Score: 0 12/06/19 23 11:30 AM EDT documented as of this encounter Care Teams Tie Inspector Relationship Specialty Start Date End Date Gregg Brown MD [address] [place] [phone] PCP - General Internal Medicine 02/17/14 documented as of this encounter
--- OUTSIDE RECORDS SUMMARY | 2024-09-18 14:16 | XMS_ITS | Encounter Summary ---
Author Organization [employer] Address [address] [place] [address] 7t [place] [address] Care Team Providers Care Classification Inspector Name Role Phone Gregg Brown MD Primary Care Provide r Encounter Details Date Type Department Care Team ([facility] st Contact Info) Description 09/18/2024 Orders Only [facility] MEDICINE [address] [place] [address] Gregg Brown MD [address] [place] [address] Social History Tobacco Use Types Packs/Day Years [...] is your housing situation today? I have daev townsend 01/15/[address] you [...] PANEL, STANDARD Routine 09/18/2024 11:03 AM EST documented in this encounter Results * Albumin, Random Urine W/Creatinine (09/18/2024 11:03 AM EST) Creatinine, Urine 205.91 mg/dL [facility] Microalbumin Urine 10.0 mg/L [facility] Microalbum Creatinine Ratio Ur 4.8 <30 ug/mg cr [facility] Comment:Albumin/Creatinine R atio Reference Ranges: Normal: < 30 ug/mg creatinine Microalbuminuria: 30 - 300 ug/mg creatinineClinical Albuminuria: > 300 ug/mg creatinine 09/18/2024 11:0 3 AM EST 09/18/2024 11:48 AM EST us Gregg Duff MD LAB URINE ORDERABLES Final Result Performing Organization Address City/State/[facility] Co de Phone Number [facility] [address] [place] [address] [phone] * (ABNORMAL) Lipid Panel, Standard (09/18/2024 11:03 AM EST) Triglycerides 60 <150 mg/dL [facility] Comment:Desirable Triglyceri de: less than 150 mg/dLBorderline High Triglyceride 150-199 mg/dLHigh Triglyceride: 200-499 mg/dLVery High Triglyceride: greater than or equal to 5OO mg/dL Cholesterol 187 <200 mg/dL [facility] Comment:Desirable Cholestero l: less than 200 mg/dLBorderline High Cholesterol: 200-239 mg/dLHigh Cholesterol: greater than 239 mg/dL LDL Cholesterol Calculated 122(H) <100 mg/dL [facility] Comment:Desirable LDL: less than 100 mg/dLNear Optimal/Above Optimal LDL: 110- 129 mg/dLBorderline High LDL: 130-159 mg/dLHigh LDL: 160-189 mg/dLVery High LDL: greater than or equal to 190 mg/dL HDL Cholesterol 53 >40 mg/dL [facility] Comment:Desirable HDL: great er than 40 mg/dL Note: This HDL assay may give artificially low results in patients with liver disease. 09/18/2024 11:0 3 AM EST 09/18/2024 11:51 AM EST Gregg Duff MD LAB BLOOD ORDERABLES Final Result Performing Organization Address [facility] Co de Phone Number [facility] [address] [place] [phone] documented in this encounter Visit Diagnoses Not on filedocumented in this encounter Additional Health Concerns Assessment Noted Time PHQ-9 Depression Total Score: 0 01/15/20 24 10:30 AM EDT documented as of this encounter Care Teams Classification Inspector Relationship Specialty Start Date End Date Gregg Brown MD [address] [place] [phone] PCP - General Internal Medicine 02/17/14 documented as of this encounter
--- OUTSIDE RECORDS SUMMARY | 2024-09-18 14:16 | XMS_ITS | Encounter Summary ---
Author Organization [employer] [facility] Address [address] [place] [address] 7t [place] [address] Care Team Providers Care Tie Fastener Name Role Phone Gregg Brown MD Primary Care Provide r Encounter Details Date Type Department Care Team (Latest Contact Info) Description 07/18/2018 Abstract [facility] CONVERSIONS Dental, Provider, DDS Social History Tobacco Use Types Packs/Day Years [...] on filedocumented in this encounter Care Teams Tie Fastener Relationship Specialty Start Date End Date Gregg Brown MD [address] [place] [phone] PCP - General Internal Medicine 02/17/14 documented as of this encounter
--- OUTSIDE RECORDS SUMMARY | 2024-09-18 14:16 | XMS_ITS | Encounter Summary ---
Author Organization [employer] Address [address] [place] [address] 7 [place] [address] Care Team Providers Care Audio Visual Manager Name Role Phone Gregg Brown MD Primary Care Provide r Reason for Visit * Reason Onset Date Comments Med Refill 09/08/2024 Encounter Details Date Type Department Care Team ([facility] st Contact Info) Description 09/08/2024 Refill [facility] MEDICINE [address] [place] [address] Gregg Brown MD [address] [place] [address] Social History Tobacco Use Types Packs/Day Years [...] encounter Miscellaneous Notes * Telephone Encounter - Nathen Patterson - 09/08/2024 3:31 PM EST TC from pt requesting medication refill. Medications needing refill : risperiDONE (RisperDAL) 1 MG tablet To be sent to: [id number] [place], [place] - [address] [facility] documented in this encounter Plan of Treatment Not on file documented as of this encounter Visit Diagnoses Not on filedocumented in this encounter Additional Health Concerns Assessment Noted Time PHQ-9 Depression Total Score: 0 01/15/20 10:30 AM EDT documented as of this encounter Care Teams Audio Visual Manager Relationship Specialty Start Date End Date Gregg Brown MD [address] [place] [phone] PCP - General Internal Medicine 02/17/14 documented as of this encounter
--- OUTSIDE RECORDS SUMMARY | 2024-09-18 14:16 | XMS_ITS | Encounter Summary ---
Author Organization [employer] [facility] Address [address] [place] [address] [address]t [place] [address] Care Team Providers Care Private Sector Executive Name Role Phone Gregg Brown MD Primary Care Provide r Encounter Details Date Type Department Care Team (Latest Contact Info) Description 09/24/2019 Abstract [facility] CONVERSIONS Dental, Provider, DDS Social History Tobacco [...] on filedocumented in this encounter Care Teams Private Sector Executive Relationship Specialty Start Date End Date Gregg Brown MD [address] [place] [phone] PCP - General Internal Medicine 02/17/14 documented as of this encounter
--- OUTSIDE RECORDS SUMMARY | 2024-09-18 14:16 | XMS_ITS | Encounter Summary ---
Author Organization [employer] Address [address] [place] [address] [address] [place] [address] Care Team Providers Care Concrete Layer Name Role Phone Gregg Brown MD Primary Care Provide r Reason for Visit * Reason Comments Pre-visit Planning SDOH Screening negat moni and Tobacco screening negative Encounter Details Date Type Department Care Team ([facility] st Contact Info) Description 09/09/2024 Patient Outreach [facility] MEDICINE [address] [place] [address] Gregg Brown MD [address] [place] [address] Pre-visit Planning (SDOH Screening negative and Tobacco screening negative) Social History Tobacco Use Types Packs/Day Years [...] the past 12 months, has t he [employer], gas, oil or water company threatened to [...] AM EDT documented as of this encounter Progress Notes * Nazia Taylor - 09/09/2024 1:35 PM EST EDMAR Rouse placed successful outbound call to patient for pre-visit planning. Patient name and confirmed. Patient confirms appt date and time, and has transportation arrangements. Biggest concern for appointment at this time is no concerns for now. Patient advised to bring to appointment a photo id and insurance card. Appropriate screenings completed in anticipation of appointment. documented in this encounter Plan of Treatment Not on file documented as of this encounter Visit Diagnoses Not on filedocumented in this encounter Additional Health Concerns Assessment Noted Time PHQ-9 Depression Total Score: 0 01/15/20 24 10:30 AM EDT documented as of this encounter Care Teams Concrete Layer Relationship Specialty Start Date End Date Gregg Brown MD [address] [place] [phone] PCP - General Internal Medicine 02/17/14 documented as of this encounter
== END 2024-09-18 11:36 | disposition home or self-care (01) ==
LOC: HO.HHCX 11:35
PROVIDERS: Visit Provider Internal Medicine
DX: R63.4 Abnormal weight loss (principal)
CPT/HCPCS: 71046

== ENCOUNTER → 2024-09-18 11:37 | Outpatient (BNV) | payer MEDICARE, SELFPAY | PROVIDERS: Visit Provider Radiology Diagnostic Radiology | DX: R63.4 Abnormal weight loss (principal) | CPT/HCPCS: 71046 ==